=== PATIENT | male | born 1990 | race Caucasian/White ===

== ENCOUNTER 2016-05-15 17:10 | Inpatient (IN) | payer SELFPAY ==
[~2016-05-15] VITALS: Ht 177.8 cm; Wt 75.4 kg
[2016-05-15] MEDS ORDERED: LORazepam 2 MG/ML VIAL IM ONE (18:00)
[2016-05-15 18:05] VITALS: BP 138/82; PULSE 94; RESP 18; TEMP 99.8; O2SAT 96
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
[2016-05-15 18:53] LABS: AUTOMATED NEUTROPHIL # 7.4 TH/MM3 (1.8-7.7); BASOPHIL % 0.4 % (0.0-2.0); EOSINOPHIL # 0.2 TH/MM3 (0-0.4); EOSINOPHIL % 1.5 % (0.0-4.0); HEMATOCRIT 44.9 % (39.0-51.0); HEMO FLAGS DIFF FINAL; LYMPH % 17.1 % (9.0-44.0); LYMPHOCYTE # 1.7 TH/MM3 (1.0-4.8); MEAN CELL VOLUME 89.2 FL (80.0-100.0); MEAN CORPUSCULAR HEMOGLOBIN 31.3 PG (27.0-34.0); MEAN CORPUSCULAR HGB CONC 35.1 % (32.0-36.0); MONO % 8.2 % (0.0-8.0); NEUT % 72.8 % (16.0-70.0); PLATELET COUNT 318 TH/MM3 (150-450); RED BLOOD COUNT 5.04 MIL/MM3 (4.50-5.90); RED CELL DISTRIBUTION WIDTH 12.4 % (11.6-17.2); WHITE BLOOD COUNT 10.2 TH/MM3 (4.0-11.0)
[2016-05-15 18:59] LABS: AMPHETAMINE, URINE NEG (NEG); BARBITURATES, URINE NEG (NEG); COCAINE, URINE NEG (NEG)
[2016-05-15 19:18] LABS: ANION GAP 6 MEQ/L (5-15)
[2016-05-15 19:22] LABS: ALKALINE PHOSPHATASE 70 U/L (45-117); ALT (GPT) 31 U/L (12-78); AST (GOT) 22 U/L (15-37); BICARBONATE 29.1 MEQ/L (21.0-32.0); BLOOD UREA NITROGEN 9 MG/DL (7-18); CHLORIDE 104 MEQ/L (98-107); GLOMERULAR FILTRATION RATE 77 ML/MIN (>89); SODIUM (NA) 139 MEQ/L (136-145); TOTAL BILIRUBIN ADULT 0.7 MG/DL (0.2-1.0)
[2016-05-15 22:25] VITALS: BP 116/55; PULSE 84; RESP 16
[2016-05-16 06:40] VITALS: BP 116/73; PULSE 72; RESP 18
[2016-05-16 11:47] VITALS: BP 110/60; PULSE 66; RESP 16; TEMP 97.8; O2SAT 100
[2016-05-16 15:41] VITALS: BP 127/57; PULSE 75; RESP 16; TEMP 98.1; O2SAT 100
--- NOTE | 2016-05-16 15:51 | HHI.PYPN ---
Subjective Remarks Patient seen in [facility], chart reviewed, case discussed with staff Patient is a 26 yo who has had significant trouble sleeping in the last 3 to 5 days. His thoughts have been racing, he has flights of ideas he is getting more and more distractible, he feels he "can do anything I set my mind to, he sleeps only about 2 hours a night, he has been doing risky things, such as taking his brothers Lauren to stay up about 3 or 4 days ago and overspending on [place] and today when seen in the ER he has pressured speech and is difficult to interrupt and reports paranoid thoughts that "people will get me". The patient says he does use cannabis about 3 or 4 times a week on average but his marijuana use has not changed before or during this episode. He rarely used ETOH He says his mother is Bipolar and his half brother has ADD, while 2 sisters are depressed. The patient had a previous episode of depression from 21 to 24 years of age and thinks anxiety, social anxiety mild OCD, and insomnia are all psychiatric problems for him. The patient denies abuse Review of Systems Psychiatric: COMPLAINS OF: Anxiety, Confusion, Mood changes, Depression, Agitation, Delusions Objective Alert: Yes Foster: Person, Place, Date, Situation Mood: Agitated, Anxious, Depressed Affect: Manic Memory Intact: Comment (decreased memory) Hallucinations: Other (none) Delusions: Yes Delusion Type: Paranoid Suicidal: Ideation (no) Homicidal: Ideation (no) Insight/Judgement poor Labs Test 05/15/16 05/15/16 18:25 18:30 White Blood Count 10.2 TH/MM3 Red Blood Count 5.04 MIL/MM3 Hemoglobin 15.8 GM/DL Hematocrit 44.9 % Mean Corpuscular Volume 89.2 FL Mean Corpuscular Hemoglobin 31.3 PG Mean Corpuscular Hemoglobin 35.1 % Concent Red Cell Distribution Width 12.4 % Platelet Count 318 TH/MM3 Mean Platelet Volume 8.0 FL Neutrophils (%) (Auto) 72.8 % Lymphocytes (%) (Auto) 17.1 % Monocytes (%) (Auto) 8.2 % Eosinophils (%) (Auto) 1.5 % Basophils (%) (Auto) 0.4 % Neutrophils # (Auto) 7.4 TH/MM3 Lymphocytes # (Auto) 1.7 TH/MM3 Monocytes # (Auto) 0.8 TH/MM3 Eosinophils # (Auto) 0.2 TH/MM3 Basophils # (Auto) 0.0 TH/MM3 CBC Comment DIFF FINAL Differential Comment Sodium Level 139 MEQ/L Potassium Level 4.0 MEQ/L Chloride Level 104 MEQ/L Carbon Dioxide Level 29.1 MEQ/L Anion Gap 6 MEQ/L Blood Urea Nitrogen 9 MG/DL Creatinine 0.86 MG/DL Estimat Glomerular Filtration 77 ML/MIN Rate Random Glucose 93 MG/DL Calcium Level 9.1 MG/DL Total Bilirubin 0.7 MG/DL Aspartate Amino Transf 22 U/L (AST/SGOT) Alanine Aminotransferase 31 U/L (ALT/SGPT) Alkaline Phosphatase 70 U/L Total Protein 7.6 GM/DL Albumin 4.3 GM/DL Ethyl Alcohol Level LESS THAN 3 MG/DL Urine Opiates Screen NEG Urine Barbiturates Screen NEG Urine Amphetamines Screen NEG Urine Benzodiazepines Screen NEG Urine Cocaine Screen NEG Urine Cannabinoids Screen POS Vitals/IOs Vital Signs Date Time Temp Pulse Resp B/P Pulse Ox O2 Delivery O2 Flow Rate FiO2 05/16/16 11:47 97.8 66 16 110/60 100 Room Air Assessment & Plan Problem List: (1) Bipolar disorder, most recent episode manic Assessment & Plan: Patient is in a manic episode, which improved slightly when given ativan in ER. We will try Seroquel and see how he does. He is willing to be a voluntary patient. ICD Code: F31.10 Assessment & Plan Estimated LOS: days Justification for Cont. Inpt. This patient is being seen in the ER for admission to the Unit Tiana Buckley MD May 16, 2016 15:51
[2016-05-16] MEDS ORDERED: ALUMINUM/MAGNESIUM/SIMETH 30 ML CUP PO PRN ×2 (16:00→16:15)
[2016-05-16] MEDS ORDERED: LORazepam 2 MG/ML VIAL IM PRN ×2 (16:00→16:15)
[2016-05-16] MEDS ORDERED: MAGNESIUM HYDROXIDE SUSP 30 ML CUP PO PRN ×2 (16:00→16:15)
[2016-05-16] MEDS ORDERED: PILL SPLITTER OTHER PRN (16:00)
[2016-05-16] MEDS ORDERED: LORazepam 2 MG/ML VIAL - age > 65 yrs IM PRN (16:15)
[2016-05-16] MEDS ORDERED: LORazepam 1 MG TAB PO PRN (16:15)
[2016-05-16] MEDS ORDERED: LORazepam 0.5 MG TAB age > 65 yrs PO PRN (16:15)
[2016-05-16] MEDS ORDERED: ACETAMINOPHEN 325 MG TAB PO PRN (16:15)
[2016-05-16 17:30] VITALS: BP 105/65; PULSE 69; RESP 17; TEMP 98.9; O2SAT 100
[2016-05-16] MEDS ORDERED: QUEtiapine FUMARATE 100 MG TAB PO SCH (21:00)
[2016-05-17 07:29] LABS: ANION GAP 4 MEQ/L (5-15); BICARBONATE 31.7 MEQ/L (21.0-32.0); BLOOD UREA NITROGEN 12 MG/DL (7-18); CHLORIDE 105 MEQ/L (98-107); GLOMERULAR FILTRATION RATE 100 ML/MIN (>89); POTASSIUM 4.1 MEQ/L (3.5-5.1); SODIUM (NA) 141 MEQ/L (136-145)
[2016-05-17 07:32] LABS: HDL CHOLESTEROL 54.6 MG/DL (40.0-60.0); LDL CHOLESTEROL 69 MG/DL (0-99)
[2016-05-17] MEDS: QUEtiapine FUMARATE 25 MG TAB PO SCH ×3 (08:22→13:03)
[2016-05-17] MEDS: NICOTINE 21 MG/24 HR PATCH T-DERMAL SCH (08:36)
[2016-05-17] MEDS: REMOVE OLD NICOTINE PATCH T-DERMAL SCH (08:36)
[2016-05-17] MEDS: LORazepam 1 MG TAB PO PRN ×2 (10:27→10:36)
[2016-05-17 13:31] LABS: HEMOGLOBIN A1a 0.7 %; HEMOGLOBIN A1b 0.7 %; HEMOGLOBIN Ao 87.9 %; HEMOGLOBIN F 0.6 %; HEMOGLOBIN LA1C 1.8 %; HEMOGLOBIN P3 3.3 %
[2016-05-17] MEDS ORDERED: diphenhydrAMINE HCL 50 MG/ML VIAL ONE (17:44)
[2016-05-17] MEDS ORDERED: HALOPERIDOL LACTATE 5 MG/ML AMP ONE (17:47)
[2016-05-17] MEDS ORDERED: LORazepam 2 MG/ML VIAL IM ONE (18:00)
[2016-05-17] MEDS ORDERED: diphenhydrAMINE HCL 50 MG/ML VIAL IM ONE (18:00)
[2016-05-17] MEDS ORDERED: HALOPERIDOL LACTATE 5 MG/ML AMP IM ONE (18:00)
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
[2016-05-17 19:10] VITALS: BP 131/74; PULSE 74; RESP 18; TEMP 99.9
[2016-05-17] MEDS ORDERED: QUEtiapine FUMARATE 100 MG TAB PO SCH (21:00)
[2016-05-18 06:06] VITALS: BP 109/70; PULSE 52; RESP 18; TEMP 97.9; O2SAT 100
[2016-05-18] MEDS: REMOVE OLD NICOTINE PATCH T-DERMAL SCH (09:00)
[2016-05-18] MEDS ORDERED: ZIPRASIDONE HCL 40 MG CAP PO SCH (09:00)
[2016-05-18] MEDS ORDERED: QUEtiapine FUMARATE 25 MG TAB PO SCH (09:00)
[2016-05-18] MEDS: NICOTINE 21 MG/24 HR PATCH T-DERMAL SCH (09:00)
--- NOTE | 2016-05-18 09:46 | HHI.PYPN ---
Subjective Remarks Patient seen and examined with counselor Cecilia and nursing staff. Chart reviewed. Dr. Buckley's documentation reviewed. Case discussed with nursing staff who reports the patient was transferred from the lower acuity unit for aggressive behavior. On my examination today, the patient reports that he came into the hospital because he was feeling "paranoid." He notes that the past few days at work, he has been feeling like people are watching him on hidden camera. He also has the feeling that "people are making me think and feel certain things when I'm not paying attention to them." I can elicit no other delusional beliefs, and he denies AVH. He denies any suicidal or homicidal ideation. He does complain of difficulty sleeping and trouble focusing and concentrating. Mood is described as somewhat low, but affective symptoms seem secondary, both in the patient's estimation and also in terms of his total psychiatric symptom burden. Past psychiatric history: Patient denies a history of psychiatric diagnosis, inpatient or outpatient psychiatric treatment, or suicide attempts. He has been on no psychotropic medications. Family history: Patient reports a family history of bipolar disorder in his mother, aunt and sister. Chemical dependency history: Patient reports that he has been using cannabis every other day. He also has been taking caffeine pills, sometimes as much as 300 mg a day in addition to beverages with caffeine like red bull. He denies any other substance use. He denies use of synthetics. Social history: Patient reports that he is living with his mother and brother. He has an 11th grade education. He works at [employer]. Review of Systems Other Except as above, no physical complaints at this point. Objective Alert: Yes [place]: Person, Place, Date Mood: Calm (somewhat down) Affect: Blunted Memory Intact: Comment (reports difficulty focusing and concentrating but otherwise no memory complaints) Hallucinations: Other (denies AVH) Delusions: Yes Delusion Type: Other (delusions of monitoring and thought manipulation as noted above. Patient does seem to have some degree of insight that these are false but can't shake the feeling that they're happening.) Suicidal: Ideation (denies SI) Homicidal: Ideation (denies HI) Insight/Judgement Fair Remarks No motoric abnormalities noted. Thought process is fairly linear. Fairly well groomed. Speech little bit slow and monotone but otherwise within normal limits. Labs CBC, CMP and toxicology results along with other laboratories reviewed. I note the patient's urine toxicology was positive for cannabinoids. Vitals/IOs Vital Signs Date Time Temp Pulse Resp B/P Pulse Ox O2 Delivery O2 Flow Rate FiO2 05/18/16 06:06 97.9 52 18 109/70 100 05/16/16 15:41 Room Air Assessment & Plan Problem List: (1) Psychosis Assessment & Plan: Rule out primary psychotic disorder. Rule out drug induced psychotic disorder. Rule out psychosis due to a general medical condition. ICD Code: F29 Assessment & Plan Patient was primarily psychotic symptoms of thought manipulation and monitoring. Affective symptoms seem secondary and minimal in this patient. I suspect a primary psychotic disorder or else a drug induced psychotic disorder or psychosis due to a general medical condition. I will initiate a first break psychosis workup including a head CT. I do not think that the patient requires 2 different antipsychotic medications and so we'll discontinue the Seroquel after discussion of the relative risks and benefits of his psychotropic medication regimen. We will continue him on the Geodon and make a slight upward dose adjustment on this medication. I will adjust his Ativan as needed dosing. Dr. Buckley had initiated a petition for involuntary psychiatric hospitalization, but the patient seems to have at least fair insight into his mental illness issues and is willing and in fact desiring to remain on the inpatient psychiatric unit voluntarily, and so I automobile contract clerk that he is capacitated to do so at this time. Justification for Cont. Inpt. Ongoing impairments in reality construction. Medication changes requiring active monitoring. Risk for decompensation in lower level of care. Discharge Planning Pending psychiatric stabilization Request HC Surrog/Guard Advoc?: No Problem Qualifiers (1) Psychosis: Qualified Code: F28 - Other psychotic disorder not due to substance or known physiological condition Jagdish Bradshaw MD May 18, 2016 09:46
--- NOTE | 2016-05-18 11:55 | RADRPT ---
EXAM DATE/TIME: 05/18/2016 11:44 [place] COMPARISON: No previous studies available for comparison. INDICATIONS : Altered mental status, confusion RADIATION DOSE: 40.70 CTDIvol (mGy) MEDICAL HISTORY : Migraine SURGICAL HISTORY : None. ENCOUNTER: Initial ACUITY: 2 days PAIN SCALE: 0/10 LOCATION: cranial TECHNIQUE: Multiple contiguous axial images were obtained of the head. Using automated exposure control and adj ustment of the mA and/or kV according to patient size, radiation dose was kept as low as reasonably a chievable to obtain optimal diagnostic quality images. FINDINGS: CEREBRUM: The ventricles are normal for age. No evidence of midline shift, mass lesion, hemorrhage or acute in farction. No extra-axial fluid collections are seen. POSTERIOR FOSSA: The cerebellum and brainstem are intact. The 4th ventricle is midline. The cerebellopontine angle i s unremarkable. EXTRACRANIAL: The visualized portion of the orbits is intact. SKULL: The calvaria is intact. No evidence of skull fracture. CONCLUSION: Negative exam. Navid Valadez MD on May 18, 2016 at 11:52 Board Certified Radiologist. This report was verified electronically.
[2016-05-18] MEDS: LORazepam 1 MG TAB PO PRN (15:00)
[2016-05-18] MEDS ORDERED: LORazepam 2 MG/ML VIAL IM PRN (16:15)
[2016-05-18] MEDS: ZIPRASIDONE HCL 60 MG CAP PO SCH (17:51)
[2016-05-18 18:00] VITALS: BP 104/62; PULSE 91; RESP 18; TEMP 99.2; O2SAT 100
[2016-05-19 05:51] VITALS: BP 105/70; PULSE 84; RESP 18; TEMP 98.2; O2SAT 100
[2016-05-19] MEDS: ZIPRASIDONE HCL 60 MG CAP PO SCH (08:56)
[2016-05-19] MEDS: NICOTINE 21 MG/24 HR PATCH T-DERMAL SCH (08:56)
[2016-05-19] MEDS: REMOVE OLD NICOTINE PATCH T-DERMAL SCH (09:00)
--- NOTE | 2016-05-19 11:57 | HHI.PYPN ---
Subjective Remarks Patient seen and examined with counselor Cecilia. Chart reviewed. Case discussed with nursing staff who reports patient as somewhat childlike and attention seeking. On my examination today, the patient is fairly concrete and guarded. When I asked him, admittedly somewhat colloquially, "where are we at" regarding his psychiatric symptomatology, he responds "[facility]." When I try to reframe the question, he just repeats that he is at [place]. I try for a third time, and the patient abruptly stands up, says "ok" and walks off, terminating the interview. He appears somewhat internally preoccupied. No evident side effects from medications. Review of Systems ROS Limitations: Psychotic, Poor Historian Other No reported physical complaints today Objective Alert: Yes [place]: Person, Place (at least) Mood: Other (unable to assess) Affect: Flat Memory Intact: Comment (not formally assessed today) Hallucinations: Other (appears internally preoccupied) Delusions: Yes Delusion Type: Other (seems fairly suspicious and guarded) Suicidal: Ideation (unable to assess) Homicidal: Ideation (unable to assess) Insight/Judgement Unable to assess today Remarks No abnormal motor movements noted. Unable to assess thought process. Speech is limited sample. Grooming and hygiene seem good. Labs Test 05/18/16 21:33 Ammonia 26 MCMOL/L Thyroid Stimulating Hormone 2.930 uIU/ML 3rd Gen Rapid Plasma Reagin NON-REACTIVE HIV (1&2) Antibody NEGATIVE Labs reviewed. No evidence so far of medical etiology for patient's psychiatric symptoms. Vitals/IOs Vital Signs Date Time Temp Pulse Resp B/P Pulse Ox O2 Delivery O2 Flow Rate FiO2 05/19/16 05:51 98.2 84 18 105/70 100 05/16/16 15:41 Room Air Intake and Output 05/18/16 05/18/16 05/19/16 08:00 16:00 00:00 Intake Total 240 ml Balance 240 ml Assessment & Plan Problem List: (1) Psychosis ICD Code: F29 Assessment & Plan Patient continues to display signs of decompensated psychosis in our admittedly somewhat brief interaction today. He did not display any side effects from medications. I will titrate his Geodon to target these psychotic symptoms. Continue other medications and care as ordered. Justification for Cont. Inpt. Ongoing impairments in reality construction, social functioning, medication changes, risk for decompensation in a less restrictive environment. Discharge Planning Pending psychiatric stabilization Request HC Surrog/Guard Advoc?: No Problem Qualifiers (1) Psychosis: Qualified Code: F28 - Other psychotic disorder not due to substance or known physiological condition Jagdish Bradshaw MD May 19, 2016 11:57
[2016-05-19] MEDS: ZIPRASIDONE HCL 80 MG CAP PO SCH (18:00)
[2016-05-19 19:28] VITALS: BP 109/60; PULSE 91; RESP 18; TEMP 98.6; O2SAT 99
[2016-05-20] MEDS: LORazepam 1 MG TAB PO PRN ×2 (01:43→09:20)
[2016-05-20] MEDS: ACETAMINOPHEN 325 MG TAB PO PRN (03:45)
[2016-05-20 06:00] VITALS: BP 143/88; PULSE 100; RESP 18; TEMP 98.9; O2SAT 99
[2016-05-20] MEDS: NICOTINE 21 MG/24 HR PATCH T-DERMAL SCH (09:00)
[2016-05-20] MEDS: REMOVE OLD NICOTINE PATCH T-DERMAL SCH (09:00)
[2016-05-20] MEDS: ZIPRASIDONE HCL 80 MG CAP PO SCH (09:00)
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
[2016-05-20] MEDS ORDERED: OLANZapine IM 10 MG VIAL IM PRN (12:15)
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
[2016-05-20] MEDS ORDERED: LORazepam 1 MG TAB PO PRN (16:00)
[2016-05-20] MEDS ORDERED: LORazepam 2 MG/ML VIAL IM PRN (16:15)
[2016-05-20] MEDS: OLANZapine ODT 10 MG TAB PO SCH (20:21)
[2016-05-20 20:22] VITALS: BP 126/66; PULSE 85; RESP 18; TEMP 97.9; O2SAT 98
[2016-05-21 06:08] VITALS: BP 99/55; PULSE 59; RESP 18; TEMP 97.5; O2SAT 100
[2016-05-21] MEDS: REMOVE OLD NICOTINE PATCH T-DERMAL SCH (09:00)
[2016-05-21] MEDS: NICOTINE 21 MG/24 HR PATCH T-DERMAL SCH (09:00)
--- NOTE | 2016-05-21 16:10 | HHI.PYPN ---
Subjective Remarks Patient seen and examined with nursing staff. Chart reviewed. Case discussed with nursing staff who reports that patient is superficially able to present a normal demeanor but becomes more disorganized with extended conversation. On my examination today, the patient seems considerably less anxious and paranoid since we made the switch from Geodon to Zyprexa. As reported by nursing staff, thought process does derail a little bit with extended conversation but he is able to keep it together for a decent length of time. Somewhat somatically preoccupied and wonders if cracking his joints will cause any long-term damage. Denies side effects from the Zyprexa or other medications. Review of Systems ROS Limitations: Poor Historian Other Somatic preoccupation as detailed above but no real physical complaints today. In particular, denies current chest pain, shortness of breath, lightheadedness/ dizziness. Objective Alert: Yes [place]: Person, Place Mood: Other (much calmer versus yesterday) Affect: Flat Memory Intact: Comment (not formally assessed) Hallucinations: Other (remains a little internally stimulated) Delusions: Yes Delusion Type: Paranoid (less) Suicidal: Ideation (no SI) Homicidal: Ideation (no HI) Insight/Judgement Poor Remarks No motoric abnormalities noted. Labs Labs reviewed. No new labs. Vitals/IOs Vital Signs Date Time Temp Pulse Resp B/P Pulse Ox O2 Delivery O2 Flow Rate FiO2 05/21/16 06:08 97.5 59 18 99/55 100 Assessment & Plan Problem List: (1) Psychosis ICD Code: F29 Assessment & Plan Patient appears to be deriving significantly more benefit from Zyprexa than he had been from the Geodon. I do note that his blood pressure was decreased a little bit, most likely due to the hypotensive affect of the Zyprexa. I will continue therefore with current dose of Zyprexa this evening, although we could consider titrating tomorrow. Continue other medications and care as ordered. Justification for Cont. Inpt. Ongoing impairments in reality testing, social functioning, risk for decompensation pending psychiatric stabilization Discharge Planning Risk for decompensation Request HC Surrog/Guard Advoc?: No Problem Qualifiers (1) Psychosis: Qualified Code: F28 - Other psychotic disorder not due to substance or known physiological condition Jagdish Bradshaw MD May 21, 2016 16:10
[2016-05-21 19:21] VITALS: BP 124/59; PULSE 76; RESP 18; O2SAT 98
[2016-05-21] MEDS: OLANZapine ODT 10 MG TAB PO SCH (20:44)
[2016-05-22 05:33] VITALS: BP 111/57; PULSE 58; RESP 18; TEMP 97.1; O2SAT 100
[2016-05-22] MEDS: OLANZapine ODT 5 MG TAB PO SCH (09:17)
--- NOTE | 2016-05-22 09:21 | HHI.PYPN ---
Subjective Remarks Patient seen and examined with nursing staff. Chart reviewed. Case discussed with nurse. On my examination today, the patient seems more linear and logical in his thought process. He does complain of some ongoing anxiety. He says that he feels somewhat more confused in the morning but feels clearer throughout the day. Paranoia continues to lessen. Denies side effects from medications besides some dry mouth. Review of Systems Other No reported chest pain or shortness of breath or other symptoms of symptomatic hypotension. No other physical complaints besides the dry mouth Objective Alert: Yes [place]: Person, Place Mood: Calm Affect: Blunted (more reactive versus yesterday) Memory Intact: Comment (not formally assessed) Hallucinations: Other (less internally stimulated) Delusions: No Delusion Type: Other (no eliza delusions) Suicidal: Ideation (no SI) Homicidal: Ideation (no HI) Insight/Judgement Seems to be improving Remarks No motor abnormalities noted. Speech within normal limits for rate, tone and volume. Thought process more linear. Labs Labs reviewed. No new labs. Vitals/IOs Vital Signs Date Time Temp Pulse Resp B/P Pulse Ox O2 Delivery O2 Flow Rate FiO2 05/22/16 05:33 97.1 58 18 111/57 100 Vital signs reviewed. Hypotension seems to be improved. Assessment & Plan Problem List: (1) Psychosis ICD Code: F29 Assessment & Plan Titrate Zyprexa to target residual psychotic symptoms; patient seems to be improving. I will administer this in divided doses to minimize risk of once again causing hypotension. Oral care with Biotene as needed for dry mouth. Continue other medications and care as ordered. Justification for Cont. Inpt. Risk for decompensation pending psychiatric stabilization Discharge Planning Pending psychiatric stabilization Request HC Surrog/Guard Advoc?: No Problem Qualifiers (1) Psychosis: Qualified Code: F28 - Other psychotic disorder not due to substance or known physiological condition Jagdish Bradshaw MD May 22, 2016 09:21
[2016-05-22 19:31] VITALS: BP 116/65; PULSE 87; RESP 18; TEMP 100.1; O2SAT 99
[2016-05-22] MEDS: OLANZapine ODT 10 MG TAB PO SCH (20:20)
[2016-05-22] MEDS: ACETAMINOPHEN 325 MG TAB PO PRN (20:34)
[2016-05-23 06:05] VITALS: BP 130/81; PULSE 78; RESP 18; TEMP 97.7; O2SAT 100
[2016-05-23] MEDS: OLANZapine ODT 5 MG TAB PO SCH (08:50)
[2016-05-23] MEDS ORDERED: ZYPR5TAB PO (10:20)
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
== END 2016-05-23 11:20 | disposition home or self-care (01) | DRG 885 ==
LOC: NEPJ 17:10 → EDBD 05-16 16:02 → NEDA 05-16 16:02 → H260 05-16 17:21 → H270 05-17 06:10
PROVIDERS: ADMIT Psychiatry & Neurology Psychiatry; ATTEND Psychiatry & Neurology Psychiatry
DX: F29 Unspecified psychosis not due to a substance or known physiological condition (principal); F15.10 Other stimulant abuse, uncomplicated; F41.9 Anxiety disorder, unspecified; F43.10 Post-traumatic stress disorder, unspecified; Z81.8 Family history of other mental and behavioral disorders; F42.9 Obsessive-compulsive disorder, unspecified; F12.10 Cannabis abuse, uncomplicated; G47.00 Insomnia, unspecified; Z72.0 Tobacco use
CPT/HCPCS: 70450; 80048; 80053; 80061; 80301; 80320; 82140; 82607; 83036; 84443; 85025; 86592; 86703; 99285; G0479; J1200; J1630; J2060